=== PATIENT | female | born 1985 | race Caucasian/White ===

== ENCOUNTER → 2018-11-05 | Outpatient (CLI) | payer OTHER ==
[~2018-11-05] MED LIST: ACET325T9 PO; CETI10TA22 PO; DOCU100T11 PO; HYDR-3164 PO; IBUP-1027 PO
--- NOTE | 2018-11-05 17:01 | RAD ---
EXAM: Soft tissue ultrasound, left buttock. HISTORY: Left buttock redness and swelling. COMPARISON: None. FINDINGS: Sonographic evaluation was performed at the site of concern along the left buttock. This reveals a hypoechoic collection in the subcutaneous compartment measuring 13 x 9 x 4 mm. A thin tract communicates with the skin surface. No internal perfusion is identified. IMPRESSION: 1. 1.3 x 0.9 cm subcutaneous abscess or phlegmon at the site of concern. Electronically signed by: Wilmer Neff MD (11/05/2018 4:58 PM) [facility]
== END | disposition home or self-care (01) ==
LOC: US 15:13
PROVIDERS: ATTEND Specialist
DX: L02.31 Cutaneous abscess of buttock (principal)
CPT/HCPCS: 76881

== ENCOUNTER 2018-11-08 11:48 | Day surgery (SDC) | payer OTHER ==
[~2018-11-08] VITALS: Ht 167.6 cm; Wt 67.0 kg
[~2018-11-08 11:48] MED LIST changes: +DEXAMETHASONE SOD PHOS 4 MG/ML VIAL ONE; -DOCU100T11 PO; -HYDR-3164 PO; +HYDROmorphone 2 MG/ML VIAL IV PRN; +IV RINGERS,LACTATED 1000ML 1,000 ML IV SCH; +KETOROLAC 30 MG/ML INJ FOR OR. INJ ONE; +LIDOCAINE 1% PF 2 ML VIAL. ID PRN; +LIDOCAINE 2% PF 5 ML VIAL. ONE; +MORPHINE SULFATE 2 MG/ML VIAL. IV PRN; +ONDANSETRON PF 4 MG/2 ML VIAL. IV PRN; +ONDANSETRON PF 4 MG/2 ML VIAL. ONE; +PROCHLORPERAZINE 10 MG/2 ML VIAL. IV PRN; +PROPOFOL 20 ML IV ONE; +SEVOFLURANE 16 TO 30 MINUTES. IH ONE; +fentaNYL PF VIAL 100 MCG/2 ML VIAL IV PRN; +fentaNYL PF VIAL 100 MCG/2 ML VIAL ONE
[2018-11-08] MEDS ORDERED: BUPIVAC MPF-EPI 0.5%-1:200000 30 ML VIAL. ONE (11:58)
[2018-11-08] MEDS ORDERED: NEOMY/BACITR/POLYMYXIN OINT PACKET. TP ONE (12:02)
[2018-11-08] MEDS ORDERED: SURGICEL HEMOSTAT 2X3 EACH. ONE (12:06)
[2018-11-08] MEDS ORDERED: FAMOTIDINE 20 MG/2 ML VIAL ONE (12:29)
--- NOTE | 2018-11-08 13:37 | DISCH ---
DISCHARGE INSTRUCTIONS Condition on Discharge Condition on Discharge: Stable Activity After Discharge Activity Instructions for Disc: Activity as tolerated, Avoid exertion Driving Instructions after Dis: Do not drive today Diet after Discharge Diet after Discharge: Regular Wound Incision Care Wound/Incision Care: Ice to area for comfort Other wound/incision instructi: sheeba shower Sunday Follow-Up Follow up with: Desmond Saturday 11/11 for dressing change VISHAL ARGUELLES MD Nov 08, 2018 13:37
[2018-11-08] MEDS ORDERED: DOCU100T11 PO (13:41)
--- NOTE | 2018-11-08 13:41 | PDOC ---
BRIEF OPERATIVE NOTE Date: Nov 08, 2018 Pre-Op Diagnosis abscess, left buttock Post-Op Diagnosis same Procedure Performed excisional debridement of skin and subcutaneous tissue Surgeon Desmond Anesthesia Type: General (LMA) Blood Loss 5cc IV Fluid 500cc Specimens Obtained cultures Findings necrotic subcutaneous tissue Complications none Operative Note # [id number] VISHAL ARGUELLES MD Nov 08, 2018 13:41
[2018-11-08] MEDS ORDERED: HYDR-3164 PO (13:42)
[2018-11-08] MEDS ORDERED: HYDROcodone/APAP 5/325MG 1 TAB TABLET PO ONE (13:45)
[2018-11-08] MEDS ORDERED: HYDROcodone/APAP 5/325MG 1 TAB TABLET ONE (13:46)
[2018-11-08 13:49] LABS: U PREG PATIENT NEGATIVE (NEG)
[2018-11-08 14:10] VITALS: BP 122/61
--- NOTE | 2018-11-08 15:59 | OP ---
DATE OF SURGERY: 11/08/2018 PREOPERATIVE DIAGNOSIS: Abscess, left buttocks. POSTOPERATIVE DIAGNOSIS: Abscess, left buttocks. PROCEDURE: Excisional debridement of skin and subcutaneous tissue. SURGEON: Vishal Arguelles M.D. ANESTHESIA: General LMA. BLOOD LOSS: 5. IV FLUID: 500. DESCRIPTION OF PROCEDURE: The patient brought to the operating suite, given a general LMA and placed in the right lateral decubitus position. The area of concern in the left buttocks was prepped and draped in usual sterile fashion. A 0.5% Marcaine with epinephrine was infiltrated around the process. An elliptical incision was made including the ulcerated area and skin and subcutaneous tissue was debrided down to healthy tissue. Cultures were made. Wound was irrigated, evacuated and checked for hemostasis. When present and a correct sponge count was obtained, the wound was dressed with Surgicel, antibiotic ointment, half-inch plain Nu Gauze. Sterile dressing applied. The patient taken out of the decubitus position, awakened from her anesthetic and taken to the recovery room in satisfactory condition. VISHAL ARGUELLES MD DR: RENETTA/eliu JOB#: [id number] / [id number]
== END 2018-11-08 15:00 | disposition home or self-care (01) ==
LOC: SURG 11:48 → EDSTATUS 13:15 → SURG 15:00
PROVIDERS: ATTEND Surgery
DX: L02.31 Cutaneous abscess of buttock (principal); F17.210 Nicotine dependence, cigarettes, uncomplicated; Z90.49 Acquired absence of other specified parts of digestive tract; Z98.890 Other specified postprocedural states
CPT/HCPCS: 11042; 81025; 87071; 87075; A7015; J0690; J1100; J1885; J2001; J2405; J2704; J3010; J3490; A4461